=== PATIENT | male | born 1960 | race Caucasian/White ===

== ENCOUNTER → 2019-03-08 | Outpatient (CLI) | payer MEDICARE ==
[2019-03-08 15:44] LABS: HEMATOCRIT 49.1 % (42.0-52.0); HEMOGLOBIN 16.4 g/dL (13.5-18.0)
== END ==
LOC: LAB 15:18
PROVIDERS: Family Medicine
DX: E83.119 Hemochromatosis, unspecified (principal)

== ENCOUNTER → 2019-04-04 | Outpatient (CLI) | payer MEDICARE ==
[2019-04-04 14:16] LABS: HEMATOCRIT 47.8 % (42.0-52.0); HEMOGLOBIN 16.2 g/dL (13.5-18.0)
== END ==
LOC: LAB 03-22 15:13
PROVIDERS: Family Medicine
DX: E83.119 Hemochromatosis, unspecified (principal)

== ENCOUNTER → 2019-04-16 | Outpatient (CLI) | payer MEDICARE ==
[2019-04-16 14:33] LABS: HEMATOCRIT 44.5 % (42.0-52.0); HEMOGLOBIN 14.9 g/dL (13.5-18.0)
== END ==
LOC: LAB 14:10
PROVIDERS: Family Medicine
DX: E83.119 Hemochromatosis, unspecified (principal)

== ENCOUNTER → 2019-04-23 | Outpatient (CLI) | payer MEDICARE ==
[2019-04-24 09:47] LABS: HEMATOCRIT 44.3 % (42.0-52.0)
== END ==
LOC: LAB 12:33
PROVIDERS: Family Medicine
DX: E83.119 Hemochromatosis, unspecified (principal)

== ENCOUNTER → 2019-05-07 | Outpatient (CLI) | payer MEDICARE ==
[2019-05-07 15:03] LABS: HEMATOCRIT 44.8 % (42.0-52.0); HEMOGLOBIN 15.3 g/dL (13.5-18.0)
== END ==
LOC: LAB 14:40
PROVIDERS: Family Medicine
DX: E83.119 Hemochromatosis, unspecified (principal)

== ENCOUNTER → 2019-05-16 | Outpatient (CLI) | payer MEDICARE ==
[2019-05-16 15:02] LABS: HEMATOCRIT 43.2 % (42.0-52.0); HEMOGLOBIN 14.7 g/dL (13.5-18.0)
== END ==
LOC: LAB 14:24
PROVIDERS: Family Medicine
DX: E83.119 Hemochromatosis, unspecified (principal)

== ENCOUNTER → 2019-05-30 | Outpatient (CLI) | payer MEDICARE ==
[2019-05-30 11:46] LABS: HEMATOCRIT 43.1 % (42.0-52.0); HEMOGLOBIN 14.9 g/dL (13.5-18.0)
== END ==
LOC: LAB 11:31
PROVIDERS: Family Medicine
DX: E83.119 Hemochromatosis, unspecified (principal)

== ENCOUNTER → 2019-06-14 | Outpatient (CLI) | payer MEDICARE ==
[2019-06-14 10:40] LABS: HEMATOCRIT 39.7 % (42.0-52.0); HEMOGLOBIN 13.5 g/dL (13.5-18.0)
== END ==
LOC: LAB 10:29
PROVIDERS: Family Medicine
DX: E83.119 Hemochromatosis, unspecified (principal)

== ENCOUNTER → 2019-08-08 | Outpatient (CLI) | payer MEDICARE ==
[2019-08-08 11:22] LABS: HEMATOCRIT 47.9 % (42.0-52.0); HEMOGLOBIN 16.2 g/dL (13.5-18.0)
== END ==
LOC: LAB 11:07
PROVIDERS: Family Medicine
DX: E83.119 Hemochromatosis, unspecified (principal); R39.12 Poor urinary stream

== ENCOUNTER → 2019-11-28 | Outpatient (CLI) | payer MEDICARE ==
[2019-11-28 13:25] LABS: HEMATOCRIT 45.8 % (42.0-52.0); HEMOGLOBIN 16.1 g/dL (13.5-18.0)
== END ==
LOC: LAB 13:00
PROVIDERS: Family Medicine
DX: E83.119 Hemochromatosis, unspecified (principal); Z79.899 Other long term (current) drug therapy

== ENCOUNTER → 2020-04-07 | Outpatient (CLI) | payer MEDICARE ==
[2020-04-07 09:23] LABS: HEMATOCRIT 49.6 % (42.0-52.0); HEMOGLOBIN 17.4 g/dL (13.5-18.0)
== END ==
LOC: LAB 09:09
PROVIDERS: Family Medicine
DX: E83.110 Hereditary hemochromatosis (principal)

== ENCOUNTER → 2020-07-16 | Outpatient (CLI) | payer MEDICARE ==
[2020-07-16 13:32] LABS: HEMATOCRIT 48.4 % (42.0-52.0); HEMOGLOBIN 16.9 g/dL (13.5-18.0); MEAN PLATELET VOLUME 8.9 fl (7.4-10.4); RED BLOOD COUNT 5.33 M/mm3 (4.20-5.60); RED CELL DISTRIBUTION WIDTH 12.9 % (11.5-14.5); WHITE BLOOD COUNT 8.3 K/mm3 (4.8-10.8)
[2020-07-16 13:58] LABS: ALBUMIN 4.2 g/dL (3.5-5.0); POTASSIUM 4.2 mmol/L (3.5-5.1)
[2020-07-16 13:59] LABS: CALCIUM 9.4 mg/dL (8.3-10.5)
[2020-07-16 14:00] LABS: TOTAL PROTEIN 6.9 g/dL (6.4-8.3)
[2020-07-16 14:02] LABS: TOTAL BILIRUBIN 0.4 mg/dL (0.2-1.2)
== END ==
LOC: LAB 13:23
PROVIDERS: Family Medicine
DX: Z00.00 Encounter for general adult medical examination without abnormal findings (principal); I10 Essential (primary) hypertension; E83.119 Hemochromatosis, unspecified; N40.1 Benign prostatic hyperplasia with lower urinary tract symptoms; Z79.899 Other long term (current) drug therapy

== ENCOUNTER → 2021-11-16 | Outpatient (CLI) | payer MEDICARE ==
[2021-11-16 13:12] LABS: HEMATOCRIT 47.4 % (42.0-52.0); HEMOGLOBIN 16.1 g/dL (13.5-18.0); MEAN PLATELET VOLUME 8.9 fl (7.4-10.4); RED BLOOD COUNT 4.98 M/mm3 (4.20-5.60); RED CELL DISTRIBUTION WIDTH 12.3 % (11.5-14.5); WHITE BLOOD COUNT 6.8 K/mm3 (4.8-10.8)
[2021-11-16 13:25] LABS: ALBUMIN 4.3 g/dL (3.4-4.8); POTASSIUM 4.7 mmol/L (3.5-5.1)
[2021-11-16 13:27] LABS: CALCIUM 9.3 mg/dL (8.3-10.5)
[2021-11-16 13:28] LABS: TOTAL PROTEIN 6.6 g/dL (6.2-8.1)
[2021-11-16 13:30] LABS: TOTAL BILIRUBIN 0.5 mg/dL (0.2-1.2)
== END ==
LOC: LAB 12:50
PROVIDERS: Family Medicine
DX: E83.119 Hemochromatosis, unspecified (principal)

== ENCOUNTER → 2022-04-15 | Outpatient (CLI) | payer MEDICARE ==
[2022-04-15 12:38] LABS: BASO # 0.01 K/mm3 (0.02-0.10); EOS # 0.11 K/mm3 (0.04-0.40); EOS % 1.6 % (0.0-4.0); HEMATOCRIT 45.8 % (42.0-52.0); HEMOGLOBIN 15.9 g/dL (13.5-18.0); LYMPH# 1.46 K/mm3 (1.50-4.00); MEAN CELL VOLUME 92 fl (78-100); MEAN CORPUSCULAR HEMOGLOBIN 32 pg (27-31); MEAN CORPUSCULAR HGB CONC 35 g/dL (33-37); MEAN PLATELET VOLUME 8.7 fl (7.4-10.4); MONO # 0.45 K/mm3 (0.20-0.80); NEU # 4.69 K/mm3 (1.40-6.50); PLATELET COUNT 142 K/mm3 (130-400); RED CELL DISTRIBUTION WIDTH 12.8 % (11.5-14.5); WHITE BLOOD COUNT 6.7 K/mm3 (4.8-10.8)
[2022-04-15 12:49] LABS: ALBUMIN 4.2 g/dL (3.4-4.8); POTASSIUM 4.5 mmol/L (3.5-5.1)
[2022-04-15 12:50] LABS: CALCIUM 9.4 mg/dL (8.3-10.5)
[2022-04-15 12:51] LABS: TOTAL PROTEIN 6.7 g/dL (6.2-8.1)
[2022-04-15 12:53] LABS: TOTAL BILIRUBIN 0.6 mg/dL (0.2-1.2)
== END ==
LOC: LAB 12:19
PROVIDERS: Family Medicine
DX: E83.119 Hemochromatosis, unspecified (principal); I25.10 Atherosclerotic heart disease of native coronary artery without angina pectoris; K21.9 Gastro-esophageal reflux disease without esophagitis

== ENCOUNTER → 2022-04-20 | Outpatient (CLI) | payer MEDICARE ==
[2022-04-20 13:37] LABS: HEMATOCRIT 45.1 % (42.0-52.0); HEMOGLOBIN 15.8 g/dL (13.5-18.0)
== END ==
LOC: LAB 13:22
PROVIDERS: Family Medicine
DX: E83.119 Hemochromatosis, unspecified (principal); K21.9 Gastro-esophageal reflux disease without esophagitis; I25.10 Atherosclerotic heart disease of native coronary artery without angina pectoris

== ENCOUNTER → 2024-06-27 | Outpatient (CLI) | payer MEDICARE ==
[2024-06-27 14:38] LABS: BASO # 0.01 K/mm3 (0.02-0.10); EOS # 0.11 K/mm3 (0.04-0.40); HEMOGLOBIN 15.8 g/dL (13.5-18.0); LYMPH# 1.43 K/mm3 (1.50-4.00); MEAN CELL VOLUME 94 fl (78-100); MEAN CORPUSCULAR HEMOGLOBIN 32 pg (27-31); MEAN CORPUSCULAR HGB CONC 34 g/dL (33-37); MONO # 0.46 K/mm3 (0.20-0.80); NEU # 3.59 K/mm3 (1.40-6.50); PLATELET COUNT 144 K/mm3 (130-400); RED BLOOD COUNT 4.92 M/mm3 (4.20-5.60); RED CELL DISTRIBUTION WIDTH 12.8 % (11.5-14.5); WHITE BLOOD COUNT 5.6 K/mm3 (4.8-10.8)
[2024-06-27 14:40] LABS: ALBUMIN 4.2 g/dL (3.4-4.8)
[2024-06-27 14:41] LABS: CALCIUM 9.2 mg/dL (8.3-10.5)
[2024-06-27 14:42] LABS: TOTAL PROTEIN 6.6 g/dL (6.2-8.1)
[2024-06-27 14:44] LABS: TOTAL BILIRUBIN 0.3 mg/dL (0.2-1.2)
== END ==
LOC: LAB 14:02
PROVIDERS: Family Medicine
DX: E83.119 Hemochromatosis, unspecified (principal)